=== PATIENT | male | born 1990 | race Asian ===

== ENCOUNTER 2018-08-05 01:23 | Emergency (ER) | payer OTHER ==
[2018-08-05 01:28] VITALS: BP 124/85
--- NOTE | 2018-08-05 01:43 | EDPHY ---
H & P Stated Complaint: thinks he may have swollowed glass Time Seen by Provider: 08/05/18 01:36 HPI/ROS: Chief Complaint: May have swallowed glass HPI: 27-year-old male was drinking out of a drinking glass about an hour ago when he felt something sharp in his mouth. He will to the side of the glass in notice that on the outer edge of a glass there was a small chip approximately 2- 3 mm in diameter. He he is concerned that he may have swallowed last. He does not have any pain. No nausea or vomiting. He had been drinking ice as well. No blood or lacerations in his mouth. He is currently without complaint. ROS: 10 systems were reviewed and were negative except those elements noted in the HPI. PMH: None Social History: No smoking, no alcohol, no recreational drug use Family History: non-contributory Physical Exam: Gen: Awake, Alert, No Distress HEENT: Nose: no rhinorrhea Eyes: PERRLA, EOMI Mouth: Moist mucosa Neck: Supple, no JVD Chest: nontender, lungs clear to auscultation Heart: S1, S2 normal, no murmur Abd: Soft, non-tender, no guarding Back: no CVA tenderness, no midline tenderness Ext: no edema, non-tender Skin: no rash Neuro: CN II-XII intact, Sensation grossly intact, Strength 5/5 in bilateral upper and lower extremities - Personal History Current Tetanus/Diphtheria Vaccine: Yes Current Tetanus Diphtheria and Acellular Pertussis (TDAP): Yes - Medical/Surgical History Hx Asthma: No Hx Chronic Respiratory Disease: No Hx Diabetes: No Hx Cardiac Disease: No Hx Renal Disease: No Hx Cirrhosis: No Hx Alcoholism: No Hx HIV/AIDS: No Hx Splenectomy or Spleen Trauma: No Other PMH: denies - Social History Smoking Status: Never smoked Constitutional: Initial Vital Signs Temperature (C) 36.6 C 08/05/18 01:26 Heart Rate 90 08/05/18 01:26 Respiratory Rate 16 08/05/18 01:26 Blood Pressure 124/85 H 08/05/18 01:26 O2 Sat (%) 99 08/05/18 01:26 O2 Delivery Mode Room Air Allergies/Adverse Reactions: No Known Allergies Allergy (Unverified 08/05/18 01:25) Home Medications: Medication Instructions Recorded NK [No Known Home Meds] 08/05/18 Medical Decision Making ED Course/Re-evaluation: Patient should be a picture. At most it was a 2-3 mm round flat chip off the edge of the glass. He has a completely benign exam. I have reassured him that even if he did swallow but it will not cause any complications. He will return for follow-up for any concerns. Departure - Departure Disposition: Home, Routine, Self-Care Clinical Impression: Foreign body ingestion Condition: Good Instructions: Foreign Body Ingestion (ED) Additional Instructions: Follow up with primary care physician for any concerns. You may return emergency department for increasing abdominal pain, uncontrolled nausea vomiting, or any other concerns. Referrals: Matthieu Becerra, [Medical Doctor] - As per Instructions
== END 2018-08-05 01:53 | disposition home or self-care (01) ==
DX: T18.9XXA Foreign body of alimentary tract, part unspecified, initial encounter (principal)